=== PATIENT | male | born 1950 | race Caucasian/White ===

== ENCOUNTER 2019-10-02 15:33 | Inpatient (IN) | payer MEDICARE, BC ==
--- NOTE | 2019-10-02 16:17 | ER Document Report ---
ED General - General Chief Complaint: Flu Symptoms Stated Complaint: FLU SYMPTOMS Time Seen by Provider: 10/02/19 16:17 Mode of Arrival: Ambulatory Information source: Patient, Relative - spoke with RN Notes: 10/02/19 16:14 - ED Nursing Note by EDWIN HAMMOND Acct Num: [id number] : 1950 Patient Age: 69 Pt. reports to the ED via POV with C/O muscle pains all over. pt. reports that this started yesterday overnight. pt. reports that he also had a fever last night of 101. Pt. dx respiratory symptoms. pt. current temp of 100 with taking tylenol a "couple hours ago." Pt. alert and oriented x4. respirations even and unlabored. my notes 69 yo wm with fever myalgias and c/o non productive cough. CXR LLL infiltrate TRAVEL OUTSIDE OF THE [place] IN LAST 30 DAYS: No - HPI Onset: This morning Onset/Duration: Sudden, Persistent Quality of pain: Achy Severity: Mild Associated symptoms: Chest pain, Nonproductive cough, Fever, Headache Exacerbated by: Denies Relieved by: Denies Similar symptoms previously: No Recently seen / treated by doctor: No - Related Data Allergies/Adverse Reactions: No Known Allergies Allergy (Verified 10/02/19 16:13) Past Medical History - General Information source: Patient - Social History Smoking Status: Never Smoker Cigarette use (# per day): No Chew tobacco use (# tins/day): No Smoking Education Provided: No Frequency of alcohol use: None Drug Abuse: None Lives with: Family Family History: Reviewed & Not Pertinent Patient has suicidal ideation: No Patient has homicidal ideation: No Review of Systems - Review of Systems Constitutional: See HPI, Fever, Weakness, Recent illness EENT: See HPI Cardiovascular: See HPI, Dizziness Respiratory: See HPI, Cough Gastrointestinal: See HPI Genitourinary: See HPI Skin: See HPI Hematologic/Lymphatic: See HPI Neurological/Psychological: See HPI Physical Exam - Vital signs Vitals: Temp Pulse Resp BP Pulse Ox 100.0 F 114 H 16 150/82 H 100 10/02/19 15:44 10/02/19 15:44 10/02/19 15:44 10/02/19 15:44 10/02/19 15:44 Interpretation: Tachycardic, Febrile - General General appearance: Alert - HEENT Head: Normocephalic, Atraumatic Eyes: Normal Pupils: PERRL Mouth/Lips: Normal Mucous membranes: Normal Pharynx: Normal Neck: Normal - Respiratory Respiratory status: No respiratory distress Chest status: Nontender Breath sounds: Normal Chest palpation: Normal - Cardiovascular Rhythm: Regular Heart sounds: Normal auscultation Murmur: No - Abdominal Inspection: Normal Distension: No distension Bowel sounds: Normal Tenderness: Nontender Organomegaly: No organomegaly - Rectal Hemorrhoids: Other - deferred - Genitourinary Scrotum: Other - deferred - Back Back: Normal - Extremities General upper extremity: Normal inspection General lower extremity: Normal inspection - Neurological Neuro grossly intact: Yes Cognition: Normal Orientation: AAOx4 Abigail Coma Scale Eye Opening: Spontaneous Abigail Coma Scale Verbal: Oriented Xenia Coma Scale Motor: Obeys Commands Abigail Coma Scale Total: 15 Speech: Normal Motor strength normal: LUE, RUE, LLE, RLE Sensory: Normal - Psychological Associated symptoms: Normal affect - Skin Skin Temperature: Warm Skin Moisture: Dry Course - Vital Signs Vital signs: Temp Pulse Resp BP Pulse Ox 98.2 F 82 18 139/66 H 93 10/04/19 12:45 10/04/19 12:45 10/04/19 12:45 10/04/19 12:45 10/04/19 12:45 - Laboratory Result Diagrams: 10/04/19 06:36 10/04/19 06:36 Laboratory results interpreted by me: 10/02/19 10/02/19 10/02/19 16:30 16:30 16:30 WBC 14.4 H Lymph % (Auto) 5.9 L Absolute Neuts (auto) 12.0 H Absolute Monos (auto) 1.5 H Seg Neutrophils % 83.4 H D-Dimer Sodium 127.9 L Chloride 94 L Glucose 284 H NT-Pro-B Natriuret Pep 248 H 10/02/19 16:30 WBC Lymph % (Auto) Absolute Neuts (auto) Absolute Monos (auto) Seg Neutrophils % D-Dimer 0.82 H Sodium Chloride Glucose NT-Pro-B Natriuret Pep - Diagnostic Test Radiology reviewed: Reports reviewed Critical Care Note - Critical Care Note Total time excluding time spent on procedures (mins): 60 Discharge - Discharge Clinical Impression: Pneumonia Qualifiers: Pneumonia type: due to unspecified organism Laterality: left Lung location: low er lobe of lung Qualified Code(s): J18.9 - Pneumonia, unspecified organism Condition: Fair Disposition: HOME, SELF-CARE
[2019-10-02 16:46] LABS: ABSOLUTE BASOPHILS # (AUTO) 0.1 10^3/uL (0.0-0.2); ABSOLUTE LYMPHOCYTES (AUTO) 0.9 10^3/uL (0.5-4.7); ABSOLUTE MONOCYTES (AUTO) 1.5 10^3/uL (0.1-1.4); BASOPHILS % (AUTO) 0.4 % (0-2); HEMATOCRIT 46.8 % (37.9-51.0); HEMOGLOBIN 16.3 g/dL (13.5-17.0); LYMPHOCYTES % (AUTO) 5.9 % (13-45); MEAN CORPUSCULAR HGB CONC 34.8 g/dL (32.0-36.0); MEAN CORPUSCULAR VOLUME 92 fl (80-97); MONOCYTES % (AUTO) 10.3 % (3-13); PLATELET COUNT 166 10^3/uL (150-450); RED BLOOD COUNT 5.09 10^6/uL (4.35-5.55); SEGMENTED NEUTROPHILS % (AUTO) 83.4 % (42-78); TOTAL CELLS COUNTED % (AUTO) 100 %; WHITE BLOOD COUNT 14.4 10^3/uL (4.0-10.5)
[2019-10-02 17:01] LABS: ALBUMIN 3.7 g/dL (3.5-5.0); ALKALINE PHOSPHATASE 109 U/L (38-126); ANION GAP 8 (5-19); ASPARTATE AMINO TRANSFERASE 21 U/L (17-59); BILIRUBIN,TOTAL 0.9 mg/dL (0.2-1.3); BLOOD UREA NITROGEN 12 mg/dL (7-20); CALCIUM 8.7 mg/dL (8.4-10.2); CARBON DIOXIDE 26 mmol/L (22-30); CHLORIDE 94 mmol/L (98-107); GLUCOSE 284 mg/dL (75-110); POTASSIUM 4.4 mmol/L (3.6-5.0)
--- NOTE | 2019-10-02 17:14 | RADIOLOGY REPORT (SQ) ---
EXAM DESCRIPTION: CHEST SINGLE VIEW IMAGES COMPLETED DATE/TIME: 10/02/2019 5:02 pm REASON FOR STUDY: flu sx COMPARISON: None. TECHNIQUE: Single frontal radiographic view of the chest acquired. NUMBER OF VIEWS: One view. LIMITATIONS: None. FINDINGS: LUNGS AND PLEURA: No pneumothorax. Left basilar consolidation - pleural effusion. MEDIASTINUM AND HILAR STRUCTURES: Prior CABG. HEART AND VASCULAR STRUCTURES: Heart normal size. BONES: No acute findings. HARDWARE: None in the chest. OTHER: No other significant finding. IMPRESSION: Left basilar consolidation - pleural effusion. TECHNICAL DOCUMENTATION: JOB ID: [id number] [place]-72 2010 [employer]- All Rights Reserved Reading location - IP/workstation name: [employer]
[2019-10-02] MEDS ORDERED: CEFTRIAXONE INJ 1000 MG VIAL IV ONE (17:27)
[2019-10-02] MEDS ORDERED: AZITHROMYCIN INJ 500 MG VIAL IV ONE (17:28)
[2019-10-02 17:45] LABS: A TYPE INFLUENZA AG NEGATIVE (NEGATIVE); B INFLUENZA AG NEGATIVE (NEGATIVE)
[2019-10-02] MEDS ORDERED: ALBUTEROL SULFATE 0.083% NEB 2.5 MG/3 ML AMPUL NEB PRN (18:11)
[2019-10-02] MEDS ORDERED: GUAIFENESIN SYRP 200 MG/10 ML UDC PO PRN (18:11)
[2019-10-02] MEDS ORDERED: NORMAL SALINE 1000 ML 1,000 ML IV ONE (18:20)
[2019-10-02] MEDS ORDERED: DEXTROSE 40% GEL 15 GM TUBE PO PRN ×2 (18:22)
[2019-10-02] MEDS ORDERED: GLUCAGON,HUMAN RECOMB 1 MG INJ IM PRN (18:22)
[2019-10-02] MEDS ORDERED: DEXTROSE 50%-WATER 25 GM/50 ML DISP.SYRIN IV PRN ×2 (18:22)
[2019-10-02] MEDS ORDERED: HYDRALAZINE HCL INJ/PF 20 MG/1 ML SDV IV PRN (18:30)
--- NOTE | 2019-10-02 18:46 | PDOC H&P ---
History of Present Illness Patient complains of: Fever, shortness of breath History of Present Illness: HELEN RABAGO is a 69 year old male with a past medical history significant for [place], status post CABG, hypertension, DM 2, morbid obesity who presented to the emergency department today with a complaint of 4 days of fever, shaking chills, T-max 102.9, headache, malaise/myalgias, with progressively worsening dyspnea and exhaustion. He denies productive cough. No known COVID contacts, however, he splits his time between [place] and [place]; just traveled from [place] on Thursday. Evaluation emergency department revealed fever, tachycardia,Mild hypertension, leukocytosis (WBC is 14.4, lymphs 5.9, absolute neutrophils 12) hyponatremia (127) glucose 284, negative influenza, COVID test pending. Chest x-ray revealed left basilar consolidation with pleural effusion. He has been provided IV Rocephin and ceftriaxone. He is referred to the hospitalist service for admission and management of the above-stated complaints findings. Past Medical History Cardiac Medical History: Reports: Congestive Heart Failure, Myocardial Infarction, Hypertension Pulmonary Medical History: Reports: None EENT Medical History: Reports: None Neurological Medical History: Reports: None Endocrine Medical History: Reports: Diabetes Mellitus Type 2, Obesity Denies: Hypothyroidism Renal/ Medical History: Reports: None Malignancy Medical History: Reports: None GI Medical History: Reports: None Musculoskeltal Medical History: Reports: None Skin Medical History: Reports: None Psychiatric Medical History: Reports: None Traumatic Medical History: Reports: None Hematology: Reports: None Past Surgical History Past Surgical History: Reports: Cholecystectomy, Coronary Artery Bypass Graft, Orthopedic Surgery - Hip Social History Information Source: Patient Lives with: Family Smoking Status: Never Smoker Electronic Cigarette use?: No Frequency of Alcohol Use: None Hx Recreational Drug Use: No Hx Prescription Drug Abuse: No - Advance Directive Resuscitation Status: Full Code Family History Family History: Reviewed & Not Pertinent Parental Family History Reviewed: Yes Children Family History Reviewed: Yes Sibling(s) Family History Reviewed.: Yes Medication/Allergy Allergies/Adverse Reactions: No Known Allergies Allergy (Verified 10/02/19 16:13) Review of Systems Constitutional: PRESENT: as per HPI, chills, fatigue, fever(s), headache(s), night sweats, weakness. ABSENT: weight gain, weight loss Eyes: ABSENT: visual disturbances Ears: ABSENT: hearing changes Cardiovascular: PRESENT: dyspnea on exertion. ABSENT: chest pain, edema, orthropnea, palpitations Respiratory: PRESENT: cough, dyspnea. ABSENT: hemoptysis, sputum Gastrointestinal: ABSENT: abdominal pain, constipation, diarrhea, hematemesis, hematochezia, nausea, vomiting Genitourinary: ABSENT: dysuria, hematuria Musculoskeletal: ABSENT: joint swelling Integumentary: ABSENT: rash, wounds Neurological: ABSENT: abnormal gait, abnormal speech, confusion, dizziness, focal weakness, syncope Psychiatric: ABSENT: anxiety, depression, homidical ideation, suicidal ideation Endocrine: ABSENT: cold intolerance, heat intolerance, polydipsia, polyuria Hematologic/Lymphatic: ABSENT: easy bleeding, easy bruising Physical Exam Vital Signs: Temp Pulse Resp BP Pulse Ox 100 F 114 H 16 150/82 H 100 10/02/19 16:13 10/02/19 15:44 10/02/19 15:44 10/02/19 15:44 10/02/19 15:44 Intake & Output 10/01/19 10/02/19 10/03/19 06:59 06:59 06:59 Weight 121 kg General appearance: PRESENT: no acute distress, cooperative, morbidly obese, well-developed, well-nourished, other - Acutely ill-appearing Head exam: PRESENT: atraumatic, normocephalic Eye exam: PRESENT: conjunctiva pink, EOMI, PERRLA. ABSENT: scleral icterus Ear exam: PRESENT: normal external ear exam Mouth exam: PRESENT: dry mucosa, tongue midline Respiratory exam: PRESENT: decreased breath sounds - Bibasilar; L>R, partly attributed to body habitus and position, rhonchi, symmetrical, unlabored. ABSENT: rales, wheezes Cardiovascular exam: PRESENT: +S1, +S2, tachycardia. ABSENT: diastolic murmur, rubs, systolic murmur Pulses: PRESENT: normal dorsalis pedis pul Vascular exam: PRESENT: normal capillary refill GI/Abdominal exam: PRESENT: normal bowel sounds, soft. ABSENT: distended, guarding, mass, organolmegaly, rebound, tenderness Rectal exam: PRESENT: deferred Extremities exam: PRESENT: full ROM. ABSENT: calf tenderness, clubbing, pedal edema Neurological exam: PRESENT: alert, awake, oriented to person, oriented to place, oriented to time, oriented to situation, CN II-XII grossly intact, other - Fatigue. ABSENT: motor sensory deficit Psychiatric exam: PRESENT: appropriate affect, normal mood. ABSENT: homicidal ideation, suicidal ideation Skin exam: PRESENT: dry, intact, warm. ABSENT: cyanosis, rash Results Laboratory Results: 10/02/19 16:30 10/02/19 16:30 10/02/19 10/02/19 16:30 16:30 WBC 14.4 H RBC 5.09 Hgb 16.3 Hct 46.8 MCV 92 MCH 32.0 MCHC 34.8 RDW 13.0 Plt Count 166 Seg Neutrophils % 83.4 H Sodium 127.9 L Potassium 4.4 Chloride 94 L Carbon Dioxide 26 Anion Gap 8 BUN 12 Creatinine 0.90 Est GFR ( Amer) > 60 Glucose 284 H Calcium 8.7 Total Bilirubin 0.9 AST 21 Alkaline Phosphatase 109 Total Protein 7.0 Albumin 3.7 Impressions: Chest X-Ray 10/02/19 16:23 IMPRESSION: Left basilar consolidation - pleural effusion. Assessment and Plan - Diagnosis (1) Sepsis Qualifiers: Sepsis type: sepsis due to unspecified organism Sepsis acute organ dysfunction status: without acute organ dysfunction Qualified Code(s): A41.9 - Sepsis, unspecified organism Is this a current diagnosis for this admission?: Yes Plan: Sepsis due to pneumonia, present on admission, evidenced by leukocytosis, fever, tachycardia, tachypnea, and infiltrate on chest x-ray. Patient is admitted to [facility] on continuous cardiac telemetry. He is provided IV fluid bolus followed by maintenance fluids. Cultures and antibiotics as below. (2) Pneumonia Qualifiers: Pneumonia type: due to unspecified organism Laterality: left Lung location: lower lobe of lung Qualified Code(s): J18.9 - Pneumonia, unspecified organism Is this a current diagnosis for this admission?: Yes Plan: Likely community-acquired pneumonia. We will rule out COVID-19 as the patient has community exposures and recently traveled from an area with a higher positive case rate then [facility]. Influenza negative. COVID-19 pending. Blood cultures pending. Sputum cultures pending. He is empirically placed on IV Rocephin and azithromycin. Supplemental oxygen as needed to maintain oxygen saturations above 89%. He is placed on scheduled and as needed nebulizer treatments. Mucinex twice daily. Robitussin as needed. Pulmonary toileting will be encouraged with incentive spirometry, out of bed for meals, and frequent repositioning. (3) Suspected COVID-19 virus infection Is this a current diagnosis for this admission?: Yes Plan: COVID-19 rule out. Patient will be placed on vitamin C, vitamin D, zinc, and melatonin. He is already on azithromycin for coverage of community-acquired pneumonias. Currently on subcu heparin for DVT prophylaxis. Out of the skin said yes sweetly get d-dimer pending; if elevated consider full dose Lovenox until COVID testing has resulted. Contact and droplet precautions. (4) HTN (hypertension) Is this a current diagnosis for this admission?: Yes Plan: Continue home medication regiment once reconciled. IV hydralazine as needed for blood pressure control. Cardiac diet. 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 lab work. Accu-Cheks before meals and at bedtime with Humalog for sliding scale coverage. Hypoglycemia protocol in place. - Time Time Spent with patient: 35 or more minutes Medications reviewed and adjusted accordingly: Yes Anticipated discharge: Home Within: within 48 hours
[2019-10-02] MEDS: ACETAMINOPHEN 325 MG TABLET PO PRN (19:22)
[2019-10-02] MEDS ORDERED: IBUPROFEN 800 MG TABLET PO PRN (19:22)
[2019-10-02] MEDS: FAMOTIDINE 20 MG TABLET PO SCH (22:27)
[2019-10-02] MEDS: GUAIFENESIN 600 MG TABLET.SA PO SCH (22:27)
[2019-10-02] MEDS: MELATONIN 3 MG TABLET PO SCH (22:27)
[2019-10-02] MEDS: HEPARIN SOD (PORCINE) 5,000 UNIT/ML 1 ML VIAL SUBCUT SCH (22:38)
[2019-10-02] MEDS: INSULIN LISPRO 100 UNIT/ML 3 ML VIAL SUBCUT SCH (22:55)
[2019-10-03] MEDS: IPRATROPIUM/ALBUTEROL 0.5-2.5 MG/3 ML AMPUL NEB SCH ×3 (00:13→20:48)
[2019-10-03 05:29] LABS: HEMATOCRIT 45.6 % (37.9-51.0); HEMOGLOBIN 15.7 g/dL (13.5-17.0); MEAN CORPUSCULAR HEMOGLOBIN 31.8 pg (27.0-33.4); MEAN CORPUSCULAR HGB CONC 34.5 g/dL (32.0-36.0); MEAN CORPUSCULAR VOLUME 92 fl (80-97); PLATELET COUNT 155 10^3/uL (150-450); RED BLOOD COUNT 4.93 10^6/uL (4.35-5.55); RED CELL DISTRIBUTION WIDTH 13.2 % (11.5-14.0); WHITE BLOOD COUNT 17.2 10^3/uL (4.0-10.5)
[2019-10-03] MEDS: HEPARIN SOD (PORCINE) 5,000 UNIT/ML 1 ML VIAL SUBCUT SCH ×3 (05:33→21:43)
[2019-10-03 05:50] LABS: ALBUMIN 3.4 g/dL (3.5-5.0); ALKALINE PHOSPHATASE 95 U/L (38-126); ANION GAP 8 (5-19); ASPARTATE AMINO TRANSFERASE 19 U/L (17-59); BILIRUBIN,DIRECT 0.1 mg/dL (0.0-0.4); BILIRUBIN,TOTAL 0.8 mg/dL (0.2-1.3); BLOOD UREA NITROGEN 16 mg/dL (7-20); CALCIUM 8.5 mg/dL (8.4-10.2); CARBON DIOXIDE 24 mmol/L (22-30); CHLORIDE 97 mmol/L (98-107); GLUCOSE 258 mg/dL (75-110); POTASSIUM 3.9 mmol/L (3.6-5.0); TOTAL PROTEIN 6.7 g/dL (6.3-8.2)
[2019-10-03] MEDS: ASCORBIC ACID 500 MG TABLET PO SCH ×2 (09:24→17:14)
[2019-10-03] MEDS: ZINC SULFATE 220 MG CAPSULE PO SCH (09:24)
[2019-10-03] MEDS: CHOLECALCIFEROL (D3) 400 UNIT TABLET PO SCH (09:24)
[2019-10-03] MEDS: FAMOTIDINE 20 MG TABLET PO SCH ×2 (09:24→21:53)
[2019-10-03] MEDS: INSULIN LISPRO 100 UNIT/ML 3 ML VIAL SUBCUT SCH ×4 (09:24→22:10)
[2019-10-03] MEDS: CEFTRIAXONE 1 GM/D5W RTU 1 GM/50 ML RTUPB IV SCH (09:25)
[2019-10-03] MEDS: GUAIFENESIN 600 MG TABLET.SA PO SCH ×2 (09:25→21:53)
[2019-10-03] MEDS: NORMAL SALINE 1000 ML 1,000 ML IV PRN ×2 (09:25→17:15)
[2019-10-03] MEDS ORDERED: AZITHROMYCIN 500 MG in DEXTROSE 5%-WATER 250 ML IV SCH ×2 (11:00→18:00)
[2019-10-03] MEDS: ACETAMINOPHEN 325 MG TABLET PO PRN ×2 (12:06→19:22)
[2019-10-03] MEDS ORDERED: HYDROXYZINE PAMOATE 25 MG CAPSULE PO PRN (14:23)
[2019-10-03] MEDS ORDERED: ZOLPIDEM TARTRATE 5 MG TABLET PO PRN (14:23)
--- NOTE | 2019-10-03 14:36 | PDOC PROGRESS REPORT ---
Subjective Progress Note for:: 10/03/19 Subjective:: HELEN RABAGO is a 69 year old male with a past medical history significant for [place], status post CABG, hypertension, DM 2, morbid obesity who was admitted with sepsis secondary to left lower lobe pneumonia; COVID-19 rule out. Patient was seen on afternoon rounds. He was found sitting up to the recliner, comfortably, on room air. He reports continued intermittent fevers, headaches, and malaise, but overall improved from yesterday. He denies dyspnea and cough. T-max 103/24 hours. Remains tachycardic. He denies chest pain, palpitations, abdominal pain, nausea vomiting diarrhea. No further questions or concerns. Nursing reports difficulty sleeping and anxiety. Reason For Visit: PNEUMONIA Physical Exam Vital Signs: Temp Pulse Resp BP Pulse Ox 99.5 F 114 H 18 155/82 H 92 10/03/19 11:26 10/03/19 11:26 10/03/19 11:26 10/03/19 11:26 10/03/19 11:26 Intake & Output 10/02/19 10/03/19 10/04/19 06:59 06:59 06:59 Intake Total 360 530 Balance 360 530 Weight 118 kg General appearance: PRESENT: no acute distress, cooperative, morbidly obese, well-developed, well-nourished Head exam: PRESENT: atraumatic, normocephalic Eye exam: PRESENT: conjunctiva pink, EOMI, PERRLA. ABSENT: scleral icterus Mouth exam: PRESENT: moist, tongue midline Respiratory exam: PRESENT: clear to auscultation will, decreased breath sounds - Bibasilar, symmetrical, unlabored. ABSENT: rales, rhonchi, wheezes Cardiovascular exam: PRESENT: RRR, tachycardia. ABSENT: diastolic murmur, rubs, systolic murmur Vascular exam: PRESENT: normal capillary refill Extremities exam: PRESENT: full ROM. ABSENT: calf tenderness, clubbing, pedal edema Musculoskeletal exam: PRESENT: ambulatory Neurological exam: PRESENT: alert, awake, oriented to person, oriented to place, oriented to time, oriented to situation, CN II-XII grossly intact. ABSENT: motor sensory deficit Psychiatric exam: PRESENT: appropriate affect, normal mood. ABSENT: homicidal ideation, suicidal ideation Skin exam: PRESENT: dry, intact, warm. ABSENT: cyanosis, rash Results Laboratory Results: 10/03/19 05:19 10/03/19 05:19 10/02/19 10/02/19 10/02/19 16:30 16:30 18:56 WBC 14.4 H RBC 5.09 Hgb 16.3 Hct 46.8 MCV 92 MCH 32.0 MCHC 34.8 RDW 13.0 Plt Count 166 Seg Neutrophils % 83.4 H Sodium 127.9 L Potassium 4.4 Chloride 94 L Carbon Dioxide 26 Anion Gap 8 BUN 12 Creatinine 0.90 Est GFR ( Amer) > 60 Glucose 284 H Lactic Acid 1.9 Calcium 8.7 Total Bilirubin 0.9 AST 21 Alkaline Phosphatase 109 Total Protein 7.0 Albumin 3.7 10/02/19 10/03/19 10/03/19 20:35 00:46 05:19 WBC 17.2 H RBC 4.93 Hgb 15.7 Hct 45.6 MCV 92 MCH 31.8 MCHC 34.5 RDW 13.2 Plt Count 155 Seg Neutrophils % Sodium Potassium Chloride Carbon Dioxide Anion Gap BUN Creatinine Est GFR ( Amer) Glucose Lactic Acid 1.2 1.2 Calcium Total Bilirubin AST Alkaline Phosphatase Total Protein Albumin 10/03/19 05:19 WBC RBC Hgb Hct MCV MCH MCHC RDW Plt Count Seg Neutrophils % Sodium 128.5 L Potassium 3.9 Chloride 97 L Carbon Dioxide 24 Anion Gap 8 BUN 16 Creatinine 0.76 Est GFR ( Amer) > 60 Glucose 258 H Lactic Acid Calcium 8.5 Total Bilirubin 0.8 AST 19 Alkaline Phosphatase 95 Total Protein 6.7 Albumin 3.4 L 10/02/19 16:30 NT-Pro-B Natriuret Pep 248 H Impressions: Chest X-Ray 10/02/19 16:23 IMPRESSION: Left basilar consolidation - pleural effusion. Assessment and Plan - Diagnosis (1) Sepsis Qualifiers: Sepsis type: sepsis due to unspecified organism Sepsis acute organ dysfunction status: without acute organ dysfunction Qualified Code(s): A41.9 - Sepsis, unspecified organism Is this a current diagnosis for this admission?: Yes Plan: Improving; WBCs trending up (17.2), remains febrile and tachycardic, though, with improved appearance/alertness. Sepsis due to pneumonia, present on admission, evidenced by leukocytosis, fever, tachycardia, tachypnea, and infiltrate on chest x-ray. Patient is admitted to [facility] on continuous cardiac telemetry. He is provided IV fluid bolus followed by maintenance fluids. Cultures and antibiotics as below. (2) Pneumonia Qualifiers: Pneumonia type: due to unspecified organism Laterality: left Lung loca tion: lower lobe of lung Qualified Code(s): J18.9 - Pneumonia, unspecified organism Is this a current diagnosis for this admission?: Yes Plan: Likely community-acquired pneumonia. We will rule out COVID-19 as the patient has community exposures and recently traveled from an area with a higher positive case rate then [facility]. Influenza negative. COVID-19 pending. Blood cultures pending. Sputum cultures not yet obtained; denies sputum production He is empirically placed on IV Rocephin and azithromycin. Supplemental oxygen as needed to maintain oxygen saturations above 89%. He is placed on scheduled and as needed nebulizer treatments. Mucinex twice daily. Robitussin as needed. Pulmonary toileting will be encouraged with incentive spirometry, out of bed for meals, and frequent repositioning. (3) Suspected COVID-19 virus infection Is this a current diagnosis for this admission?: Yes Plan: COVID-19 rule out. Patient will be placed on vitamin C, vitamin D, zinc, and melatonin. He is already on azithromycin for coverage of community-acquired pneumonias. Currently on subcu heparin for DVT prophylaxis. D-dimer slightly elevated; as he appears clinically improved, will hold on start of full dose Lovenox. Contact and droplet precautions. (4) HTN (hypertension) Is this a current diagnosis for this admission?: Yes Plan: Does not appear that the patient is on home medications for hypertension. Start Lisinopril. IV hydralazine as needed for blood pressure control. Cardiac diet. (5) Diabetes Qualifiers: Diabetes mellitus type: type 2 Diabetes mellitus fpc insulin use: without long term care administrator use Is this a current diagnosis for this admission?: Yes Plan: A1C 9.9% Recommend Metformin/glipizide at discharge. Holding oral medications while admitted. Accu-Cheks before meals and at bedtime with Humalog for sliding scale coverage. Hypoglycemia protocol in place. - Time Time Spent with patient: 25-34 minutes Medications reviewed and adjusted accordingly: Yes Anticipated discharge: Home Within: within 48 hours
[2019-10-03] MEDS: LISINOPRIL 10 MG TABLET PO SCH (16:03)
[2019-10-03] MEDS: MELATONIN 3 MG TABLET PO SCH (21:53)
[2019-10-04] MEDS: ACETAMINOPHEN 325 MG TABLET PO PRN ×2 (01:59→09:11)
[2019-10-04] MEDS: NORMAL SALINE 1000 ML 1,000 ML IV PRN (05:02)
[2019-10-04] MEDS: HEPARIN SOD (PORCINE) 5,000 UNIT/ML 1 ML VIAL SUBCUT SCH ×2 (06:28→13:05)
[2019-10-04 06:48] LABS: HEMATOCRIT 43.9 % (37.9-51.0); HEMOGLOBIN 15.4 g/dL (13.5-17.0); MEAN CORPUSCULAR HEMOGLOBIN 32.2 pg (27.0-33.4); MEAN CORPUSCULAR HGB CONC 35.1 g/dL (32.0-36.0); MEAN CORPUSCULAR VOLUME 92 fl (80-97); PLATELET COUNT 148 10^3/uL (150-450); RED BLOOD COUNT 4.78 10^6/uL (4.35-5.55); RED CELL DISTRIBUTION WIDTH 13.2 % (11.5-14.0); WHITE BLOOD COUNT 9.2 10^3/uL (4.0-10.5)
[2019-10-04 07:17] LABS: ANION GAP 8 (5-19); BLOOD UREA NITROGEN 19 mg/dL (7-20); CALCIUM 8.3 mg/dL (8.4-10.2); CARBON DIOXIDE 24 mmol/L (22-30); CHLORIDE 97 mmol/L (98-107); GLUCOSE 228 mg/dL (75-110); POTASSIUM 3.7 mmol/L (3.6-5.0)
[2019-10-04] MEDS: IPRATROPIUM/ALBUTEROL 0.5-2.5 MG/3 ML AMPUL NEB SCH (07:54)
[2019-10-04] MEDS: GUAIFENESIN 600 MG TABLET.SA PO SCH (09:10)
[2019-10-04] MEDS: FAMOTIDINE 20 MG TABLET PO SCH (09:10)
[2019-10-04] MEDS: INSULIN LISPRO 100 UNIT/ML 3 ML VIAL SUBCUT SCH ×2 (09:10→12:22)
[2019-10-04] MEDS: LISINOPRIL 10 MG TABLET PO SCH (09:10)
[2019-10-04] MEDS: ASCORBIC ACID 500 MG TABLET PO SCH (09:10)
[2019-10-04] MEDS: ZINC SULFATE 220 MG CAPSULE PO SCH (09:11)
[2019-10-04] MEDS: CHOLECALCIFEROL (D3) 400 UNIT TABLET PO SCH (09:11)
[2019-10-04] MEDS: CEFTRIAXONE 1 GM/D5W RTU 1 GM/50 ML RTUPB IV SCH (09:11)
[2019-10-04] MEDS ORDERED: ASPIRIN 81 MG TABLET, ENT COATED PO SCH (10:00)
[2019-10-04] MEDS ORDERED: TURMERIC PO SCH (10:00)
[2019-10-04] MEDS ORDERED: TURMERIC ROOT EXTRACT PO SCH (10:00)
[2019-10-04 12:49] VITALS: BP 139/66
--- NOTE | 2019-10-04 13:10 | PDOC DISCHARGE SUMMARY ---
Impression - Admit/DC Date/PCP Admission Date/Primary Care Provider: 10/02/19 18:25 Discharge Date: 10/04/19 - Discharge Diagnosis (1) Sepsis Is this a current diagnosis for this admission?: Yes (2) Pneumonia Is this a current diagnosis for this admission?: Yes (3) Suspected COVID-19 virus infection Is this a current diagnosis for this admission?: Yes (4) HTN (hypertension) Is this a current diagnosis for this admission?: Yes (5) Diabetes Is this a current diagnosis for this admission?: Yes (6) Morbid obesity with BMI of 40.0-44.9, adult Is this a current diagnosis for this admission?: Yes - Additional Information Resuscitation Status: Full Code Discharge Diet: As Tolerated Discharge Activity: Activity As Tolerated Prescriptions: Azithromycin 250 mg PO DAILY 4 Days #4 tablet Cefditoren Pivoxil 400 mg PO BID 7 Days #14 tablet Home Medications: Aspirin [Ecotrin 81 mg EC Tablet] 81 mg PO DAILY 10/03/19 Turmeric/Turmeric Root Extract [Turmeric 500 mg Capsule] 1 each PO DAILY 10/03/19 Zinc [Zinc Chelated] 50 mg PO DAILY 10/03/19 Acetaminophen [Tylenol 325 mg Tablet] 650 mg PO Q4HP PRN tablet 10/04/19 Ascorbic Acid [Vitamin C 500 mg Tablet] 500 mg PO BID tablet 10/04/19 Azithromycin 250 mg PO DAILY 4 Days #4 tablet 10/04/19 Cefditoren Pivoxil 400 mg PO BID 7 Days #14 tablet 10/04/19 Guaifenesin [Mucinex Sr 600 mg Tablet.sa] 600 mg PO Q12 tablet.sa 10/04/19 Ibuprofen [Motrin 800 mg Tablet] 800 mg PO Q6HP PRN tablet 10/04/19 History of Present Illiness History of Present Illness: HELEN RABAGO is a 69 year old male with a past medical history significant for MA, status post CABG, hypertension, DM 2, morbid obesity who presented to the emergency department today with a complaint of 4 days of fever, shaking chills, T-max 102.9, headache, malaise/myalgias, with progressively worsening dyspnea and exhaustion. He denies productive cough. No known COVID contacts, however, he splits his time between [place] and [place]; just traveled from [place] on Thursday. Evaluation emergency department revealed fever, tachycardia,Mild hypertension, leukocytosis (WBC is 14.4, lymphs 5.9, absolute neutrophils 12) hyponatremia (127) glucose 284, negative influenza, COVID test pending. Chest x-ray revealed left basilar consolidation with pleural effusion. He has been provided IV Rocephin and ceftriaxone. He is referred to the hospitalist service for admission and management of the above-stated complaints findings. Hospital Course Hospital Course: The patient responded to the antibiotic therapy. He is feeling better. He is on room air. His Accu-Cheks were elevated but his diabetes is likely adversely affected due to the infection. He is stable for discharge. His Covid-19 results are still not back and so we reviewed the quarantine after discharge until he hears from the health department. I will discharge him on Ceftin and azithromycin for the pneumonia. His BMI is 42 and his diabetes and blood pressure would benefit from exercise and weight loss when he is feeling better. His primary care provider is back in [place]. He was encouraged to make a follow-up appointment within 7 days of discharge. This certainly might be adversely affected based on the Covid-19 serology results. Physical Exam Vital Signs: Temp Pulse Resp BP Pulse Ox 98.2 F 82 18 139/66 H 93 10/04/19 12:45 10/04/19 12:45 10/04/19 12:45 10/04/19 12:45 10/04/19 12:45 Intake & Output 10/03/19 10/04/19 10/05/19 06:59 06:59 06:59 Intake Total 360 3449 530 Balance 360 3449 530 Weight 118 kg 118 kg General appearance: PRESENT: no acute distress, cooperative, morbidly obese Respiratory exam: PRESENT: symmetrical, unlabored, other - No auscultation due to PUI. ABSENT: accessory muscle use, prolonged expiratory phas GI/Abdominal exam: PRESENT: soft. ABSENT: distended, tenderness Rectal exam: PRESENT: deferred Gentrourinary exam: ABSENT: indwelling catheter Extremities exam: ABSENT: pedal edema Neurological exam: PRESENT: alert, awake, oriented to person, oriented to place, oriented to time, oriented to situation, CN II-XII grossly intact. ABSENT: altered Psychiatric exam: ABSENT: agitated, anxious Focused psych exam: PRESENT: restlessness. ABSENT: delusional, paranoid Results Laboratory Results: WBC 9.2 10^3/uL (4.0-10.5) 10/04/19 06:36 RBC 4.78 10^6/uL (4.35-5.55) 10/04/19 06:36 Hgb 15.4 g/dL (13.5-17.0) 10/04/19 06:36 Hct 43.9 % (37.9-51.0) 10/04/19 06:36 MCV 92 fl (80-97) 10/04/19 06:36 MCH 32.2 pg (27.0-33.4) 10/04/19 06:36 MCHC 35.1 g/dL (32.0-36.0) 10/04/19 06:36 RDW 13.2 % (11.5-14.0) 10/04/19 06:36 Plt Count 148 10^3/uL (150-450) L 10/04/19 06:36 Lymph % (Auto) 5.9 % (13-45) L 10/02/19 16:30 Gillespie % (Auto) 10.3 % (3-13) 10/02/19 16:30 Eos % (Auto) 0.0 % (0-6) 10/02/19 16:30 Baso % (Auto) 0.4 % (0-2) 10/02/19 16:30 Absolute Neuts (auto) 12.0 10^3/uL (1.7-8.2) H 10/02/19 16:30 Absolute Lymphs (auto) 0.9 10^3/uL (0.5-4.7) 10/02/19 16:30 Absolute Monos (auto) 1.5 10^3/uL (0.1-1.4) H 10/02/19 16:30 Absolute Eos (auto) 0.0 10^3/uL (0.0-0.6) 10/02/19 16:30 Absolute Basos (auto) 0.1 10^3/uL (0.0-0.2) 10/02/19 16:30 Seg Neutrophils % 83.4 % (42-78) H 10/02/19 16:30 D-Dimer 0.82 ug/mL (0.00-0.50) H 10/02/19 16:30 Sodium 129.2 mmol/L (137-145) L 10/04/19 06:36 Potassium 3.7 mmol/L (3.6-5.0) 10/04/19 06:36 Chloride 97 mmol/L (98-107) L 10/04/19 06:36 Carbon Dioxide 24 mmol/L (22-30) 10/04/19 06:36 Anion Gap 8 (5-19) 10/04/19 06:36 BUN 19 mg/dL (7-20) 10/04/19 06:36 Creatinine 0.85 mg/dL (0.52-1.25) 10/04/19 06:36 Est GFR ( Amer) > 60 (>60) 10/04/19 06:36 Est GFR (MDRD) Non-Af > 60 (>60) 10/04/19 06:36 Glucose 228 mg/dL (75-110) H 10/04/19 06:36 POC Glucose 281 mg/dL (70-110) H 10/04/19 12:12 Hemoglobin A1c % 9.9 % (4.7-6.0) H 10/03/19 05:19 Lactic Acid 1.2 mmol/L (0.7-2.1) 10/03/19 00:46 Calcium 8.3 mg/dL (8.4-10.2) L 10/04/19 06:36 Total Bilirubin 0.8 mg/dL (0.2-1.3) 10/03/19 05:19 Direct Bilirubin 0.1 mg/dL (0.0-0.4) 10/03/19 05:19 Neonat Total Bilirubin Not Reportable 10/03/19 05:19 Neonat Direct Bilirubin Not Reportable 10/03/19 05:19 Neonat Indirect Bili Not Reportable 10/03/19 05:19 AST 19 U/L (17-59) 10/03/19 05:19 ALT 22 U/L (<50) 10/03/19 05:19 Alkaline Phosphatase 95 U/L (38-126) 10/03/19 05:19 NT-Pro-B Natriuret Pep 248 pg/mL (<125) H 10/02/19 16:30 Total Protein 6.7 g/dL (6.3-8.2) 10/03/19 05:19 Albumin 3.4 g/dL (3.5-5.0) L 10/03/19 05:19 Influenza A (Rapid) NEGATIVE (NEGATIVE) 10/02/19 17:00 Influenza B (Rapid) NEGATIVE (NEGATIVE) 10/02/19 17:00 10/02/19 16:30 NT-Pro-B Natriuret Pep 248 H Impressions: Chest X-Ray 10/02/19 16:23 IMPRESSION: Left basilar consolidation - pleural effusion. Plan Health Concerns: Covid-19 serology still pending Plan of Treatment: Complete antibiotic therapy as ordered. He does need follow-up with his primary care provider for his poorly controlled diabetes as well as morbid obesity. Goals: The patient primary care is [place] of state. He will make his own follow-up appointment. Time Spent: Greater than 30 Minutes Stroke Is this a Stroke Patient?: No Acute Heart Failure - Is this a Heart Failure Patient?: No
== END 2019-10-04 15:00 | disposition home or self-care (01) | DRG 871 ==
LOC: ER 15:33 → EH 18:25 → OBSVTOIN 18:25 → 3N 21:10
PROVIDERS: ADMIT Internal Medicine; ATTEND Hospitalist
DX: A41.9 Sepsis, unspecified organism (principal); J18.9 Pneumonia, unspecified organism; E87.1 Hypo-osmolality and hyponatremia; Z68.41 Body mass index [BMI] 40.0-44.9, adult; I50.9 Heart failure, unspecified; I11.0 Hypertensive heart disease with heart failure; E11.65 Type 2 diabetes mellitus with hyperglycemia; E66.01 Morbid (severe) obesity due to excess calories; Z03.818 Encounter for observation for suspected exposure to other biological agents ruled out
CPT/HCPCS: 36415; 71045; 80048; 80053; 82962; 83036; 83605; 83880; 85025; 85027; 85379; 87040; 87635; 87804; 94640; 94799; 96365; 96367; 99284; C9803; G0378; J0456; J0696; J1644; J1815; J3490; J7030; J7060; J7620